=== PATIENT | female | born 1985 | race American Indian/Alaskan Native ===

== ENCOUNTER 2019-08-21 21:48 | Emergency (ER) | payer SELFPAY ==
[~2019-08-21] VITALS: Ht 149.9 cm; Wt 68.5 kg
[2019-08-21 21:51] VITALS: BP 135/93
== END 2019-08-21 22:39 | disposition left against medical advice (07) ==
LOC: ER 21:53
DX: K08.89 Other specified disorders of teeth and supporting structures (principal); Z53.21 Procedure and treatment not carried out due to patient leaving prior to being seen by health care provider